=== PATIENT | female | born 2000 | race Caucasian/White ===

== ENCOUNTER 2025-02-23 09:41 | Day surgery (SDC) | payer BC, OTHER ==
[2025-02-16 14:30] LABS: MEAN PLATELET VOLUME 7.5 FL (7.4-10.4); PRE OP HEMATOCRIT 39.6 % (35.0-45.0); PRE OP HEMOGLOBIN 13.4 g/dL (12.0-16.0); PRE OP PLATELET COUNT 365 X10'3 (140-440); PRE OP WHITE BLOOD COUNT 8.4 10'3 (4.8-10.8); RED CELL DISTRIBUTION WIDTH 13.5 % (11.5-14.5)
[2025-02-16 14:43] LABS: CREATININE 0.67 MG/DL (0.40-0.90); PRE OP ALT 18 U/L (30-65); PRE OP ANION GAP 8 (8-16); PRE OP AST 16 U/L (10-37); PRE OP BILIRUB, TOTAL 0.3 MG/DL (0.0-1.0); PRE OP GLUCOSE 98 MG/DL (70-104); PRE OP POTASSIUM 3.5 MMOL/L (3.4-5.1); PRE OP SODIUM 141 MMOL/L (135-145); TOTAL CARBON DIOXIDE 27.8 MMOL/L (24-32); eGFR > 90 ML/MIN
[2025-02-16 14:44] LABS: HCG SERUM QL NEGATIVE
[~2025-02-23] VITALS: Ht 160 cm; Wt 72.7 kg
[2025-02-23] VITALS (16 sets, daily range): BP systolic 97–128; BP diastolic 58–82; PULSE 72–114; RESP 10–16; TEMP 98.1; O2SAT 90–100
[2025-02-23] MEDS: ceFAZolin 2gm/dext,iso 50mL 50 ML IV ONE (05:30)
[~2025-02-23 09:41] MED LIST: ALBU8HFA INH; BUPIVACAINE liposomal/PF 13.3 MG/ML 10mL vial IM ONE; BUPIVAcaine/PF 2.5mg/ml (0.25%) 10ml vial ONE; albuterol 2.5 MG/3 ML nebule NEB ONE
[2025-02-23] MEDS: ringers solution, lacted 1,000 ML IV SCH (10:07)
--- NOTE | 2025-02-23 10:26 | HISTORY AND PHYSICAL ---
History & Physical Providers to CC CC: TISH STONE MD ~ History of Present Illness Reason for Admit\Complaint: Umbilical hernia, diastasis recti, abdominal pain History of Present Illness Interval history and physical exam Patient here today for elective repair of her umbilical hernia. She also has fairly significant diastasis recti abutting the hernia She was seen in the office a few months ago but denies any change in her past medical history (please see previous history and physical exam for all pertinent details) She continues to have periumbilical pain and fairly significant bulging of the abdominal midline from the xiphoid down to the epigastrium Allergies: Coded Allergies: No Known Allergies (Unverified , 02/22/25) Home Medications Home Medications Active Reported Pro-Air Inhaler (Albuterol) 8.5 Gm Inhaler 2 Puffs INH Q4HPRN PRN ROS ROS Reviewed and negative with the exception of those found in the history of present illness Exam Chest: Lungs are clear to auscultation bilaterally Cardiovascular: Regular rate and rhythm without murmurs Abdomen: Soft and nondistended 10 cm diastasis of the rectus muscles with umbilical hernia involved in the lower aspect Problems: (1) Diastasis recti (2) Umbilical hernia Additional Plan The risks, benefits, and alternatives to a robotic assisted, laparoscopic umbilical hernia repair with mesh as well as potential repair of diastasis recti, possible component separation were discussed with the patient. Risks include, but are not limited to, bleeding, infection, hernia recurrence, chronic postoperative pain and displeasing cosmetic outcome. Repairing the diastasis has been shown to decrease hernia recurrence as well as improving abdominal wall function. This is paramount, especially in a very young patient. TISH STONE MD Feb 23, 2025 10:26
[2025-02-23] MEDS ORDERED: labetalol 20mg/4ml (5mg/ml) syringe IV PRN (10:40)
[2025-02-23] MEDS ORDERED: hydrALAZINE 20mg/ml inj. IV PRN (10:40)
[2025-02-23] MEDS ORDERED: morphine 4 MG/ML inj SYRINge IV PRN (10:40)
[2025-02-23] MEDS ORDERED: HYDROmorphone/PF 0.2 MG/ML SYRINGE IV PRN ×2 (10:40)
[2025-02-23] MEDS ORDERED: ringers solution, lacted 1,000 ML IV SCH (10:40)
[2025-02-23] MEDS ORDERED: acetaminophen 1,000mg/100ml IV 100 ML IV PRN (10:40)
[2025-02-23] MEDS ORDERED: midazolam 1 mg/ML 2ml injection ONE (10:41)
[2025-02-23] MEDS ORDERED: fentaNYL /PF 50mcg/ml 5ml ampule ONE (10:54)
[2025-02-23] MEDS ORDERED: rocuronium 10mg/ml inj IV ONE (10:54)
[2025-02-23] MEDS ORDERED: propofol inj 20 ML IV ONE (10:54)
[2025-02-23] MEDS ORDERED: LIDOcaine 2% (20mg/ml) 5ml vial ONE (10:54)
[2025-02-23] MEDS ORDERED: ondansetron/PF 4mg/2ml inj ONE (11:11)
[2025-02-23] MEDS ORDERED: dexamethasone sod phosphate 4mg/ml inj. ONE (11:11)
[2025-02-23] MEDS ORDERED: glycopyrrolate 0.2mg/ml inj ONE (13:16)
[2025-02-23] MEDS ORDERED: morphine 4 MG/ML inj SYRINge ONE (13:18)
[2025-02-23] MEDS ORDERED: morphine 10mg/ml inj. ONE (13:26)
[2025-02-23] MEDS ORDERED: oxyCODONE/APAP 5-325mg tablet PO PRN (13:30)
--- NOTE | 2025-02-23 13:57 | OPERATIVE REPORT ---
Operative Report Providers to CC CC: EFREN STONE MD ~ Date of Procedure: Feb 23, 2025 Pre-Operative Diagnosis: Umbilical hernia, diastasis recti Post-Operative Diagnosis 2 cm umbilical hernia 15 cm segment of diastasis recti Procedure Performed Robotic assisted, laparoscopic transabdominal preperitoneal umbilical hernia repair with concomitant repair of diastasis recti (15 x 6 cm) Bilateral transversus abdominis plane nerve blocks by injection using 266 mg of Exparel Surgeon: Efren Stone MD FACS Machine [employer]le M[employer] None Anesthesiologist: Simona Graff Type of Anesthesia: General Findings: 2 cm fascial defect at the level of the umbilicus with 15 x 6 cm diastasis recti from the xiphoid to the umbilicus. Wound class I Complications None Prosthetics\Implants used: 20 by 4 cm ProGrip mesh Estimated Blood Loss: Minimal Specimen Removed: None Description of Procedure: Patient was brought to the operating room and identified by the nursing staff and the attending physician. Patient was placed supine and general anesthesia was induced. Preoperative antibiotics were given. The abdomen was prepped and draped in the standard sterile fashion. Veress needle technique was used and the abdomen was insufflated without incident. Optical 12 mm trocar was used to moses's point to enter the abdomen laparoscopically. The abdomen was surveyed. There was an umbilical hernia noted. Patient had significant diastasis recti that was also visible from within the abdominal cavity correlating with the marked skin, marked prior to surgery. 8.5 mm robotic trocars were placed in the suprapubic and bilateral inguinal creases under laparoscopic visualization. Patient was placed in steep reverse Trendelenburg position and the [employer] robotic arm was docked to the patient. A peritoneal rent was created about 5 cm below the umbilicus to a transverse length of about 8-10 cm. Preperitoneal plane was developed and carried along the midline with the lateral margins being the interface between the linea alba and the rectus muscles. The preperitoneal space was continued until the umbilicus was reached. Preperitoneal fat and a small hernia sac was reduced revealing a 2 cm fascial defect. Dissection continued all the way up to the costal margin and xiphoid process. The diastasis was then clearly visible. It measured 15 cm in length by a diameter of 6 cm. Using a long absorbing 180 day 0, V lock suture, the lateral edges of the linea alba were reapproximated in the midline with a running suture. Sutures were run from just below the umbilicus superiorly and from the xiphoid process inferiorly until the entire resected and were sutured together. Space was measured at 20 by 3 cm and a strip of ProGrip mesh to cover the suture line with the lateral overlap was obtained and passed into the abdomen. This required two strips a 15 x 3 cm strip and a 6 x 3 cm strip. There was 1 cm of overlap in the preperitoneal space in the strips of mesh were sutured together with Ethibond suture. Mesh was fixed with 3-0 absorbable suture and the peritoneal rent was closed over the mesh repair. Instruments were removed and the [employer] robotic arm was undocked from the patient. [place] were retrieved. Fascia at the 12 mm port site was closed percutaneousl with 0 Vicryl suture under laparoscopic visualization. Remaining ports were removed and the abdomen was allowed to deflate. Skin was closed at all sites with 4-0 Monocryl sutures in a subcuticular fashion. Sterile dressings were applied. Patient was awakened and taken to the postanesthesia care unit in stable condition. Counts repoted as correct: Yes EFREN STONE MD Feb 23, 2025 13:57
[2025-02-23] MEDS: ondansetron/PF 4mg/2ml inj IV PRN (14:30)
== END 2025-02-23 15:30 | disposition home or self-care (01) ==
LOC: PAS 09:41
PROVIDERS: ATTEND Surgery
DX: K42.9 Umbilical hernia without obstruction or gangrene (principal); M62.08 Separation of muscle (nontraumatic), other site; J45.909 Unspecified asthma, uncomplicated; Z86.73 Personal history of transient ischemic attack (TIA), and cerebral infarction without residual deficits; Z79.899 Other long term (current) drug therapy; Z90.89 Acquired absence of other organs; Z98.890 Other specified postprocedural states; Z80.1 Family history of malignant neoplasm of trachea, bronchus and lung; Z82.61 Family history of arthritis
CPT/HCPCS: 36415; 49591; 64488; 80053; 82948; 84703; 85025; C1781; J0666; J0690; J0780; J1100; J2003; J2250; J2270; J2274; J2405; J2704; J2710; J3010; J3490; J7030; J7120; Z7506; Z7508; Z7512; A4215; A4618; A7000